=== PATIENT | female | born 1980 | race Caucasian/White ===

== ENCOUNTER 2016-09-18 13:14 | Emergency (ER) | payer SELFPAY ==
--- NOTE | ~2016-09-18 | ER ---
[facility]GE[facility] 36 Y [address] ROOM: [place] [id number] LOCATION: [facility] ADMIT DATE: 09/18/2016 ER/Outpatient Report DISCHARGE DATE: 09/18/2016 FAMILY PHYSICIAN: PHYSICIAN, NO ATTENDING PHYSICIAN: Georgie Jones Admission date and time documented on the medical record. I saw the patient at 1330 hours. CHIEF COMPLAINT: Vertigo and weakness. HISTORY OF PRESENT ILLNESS: This patient is a 36-year-old female who comes in with a 3-day history of vertigo and generalized weakness. No nausea, vomiting, or diarrhea. No urinary frequency, urgency, or dysuria. No chest pain or shortness of breath. No abdominal pain or back pain. No headache or eyes, ears, nose, throat, neck, or spine pain. No recent coughs, colds, flus, fever, chills, or sweats. No syncope. No joint or muscle swelling, redness, or pain. No skin eruptions or rash. No history of endocrine problems, neurologic changes, or psychiatric issues. HOME MEDICATIONS: See attached medication list. ALLERGIES: PENICILLIN, ASPIRIN, AND MORPHINE SULFATE. SOCIAL HISTORY: The patient smokes a pack of cigarettes per day. Nondrinker. No illicit drugs. SIGNIFICANT PAST MEDICAL HISTORY: Hypertension, tobacco abuse, and recurrent otitis. OPERATIONS: None. REVIEW OF SYSTEMS: All systems reviewed by me are negative with the exception of those discussed in the History of Present Illness. PHYSICAL EXAMINATION: VITAL SIGNS: Temperature 97 tympanic, pulse 84 and regular, respirations 16, blood pressure 187/102, and O2 saturation on room air is 95%. [facility]: 36 Y [address] ROOM: [place] [address] LOCATION: [facility] ADMIT DATE: 09/18/2016 ER/Outpatient Report DISCHARGE DATE: 09/18/2016 FAMILY PHYSICIAN: PHYSICIAN, NO ATTENDING PHYSICIAN: Georgie Jones HEAD: Normocephalic. EYES, EARS, NOSE, AND THROAT: Clear. Mucous membranes moist. Mild horizontal nystagmus. NECK: No nuchal rigidity. No thyromegaly or cervical adenopathy. No carotid bruits. No tenderness. SPINE: Negative. LUNGS: Clear. Good air flow. No rales, rhonchi, or wheezes. HEART: Regular. Pulses are palpable. ABDOMEN: Soft, nondistended, and nontender. Good bowel tones. No organomegaly or abnormal masses palpable. EXTREMITIES: Moves all 4 extremities. No peripheral edema, cyanosis, or deformity. Neurovascularly intact. SKIN: Clear. No skin eruptions or rash. DIAGNOSTIC DATA: EKG showed sinus rhythm. No acute ST elevation, ischemic change, or arrhythmia. Chest x-ray showed no acute infiltrate. We will review x-ray with the radiologist. LABORATORY DATA: Jerug-zn-[id number] cardiac enzymes were normal. CPK was 63. Magnesium 1.7. CMS was normal. CRP was 0.5. Thyroid was normal. ProBNP was less than 30. D- dimer was 0.37. Urine showed 0 to 2 whites, 0 to 2 reds, 10 to 20 epithelial cells, moderate bacteria, few white cell clumps, 0 to 2 hyaline casts, and negative nitrites. Lactate 1.0. White count was 11,700 with 60 segs, 20 lymphs, 6 monos, 5 eos, and 1 baso; hemoglobin was 15.5 with hematocrit 45; and platelet count was 317,000. PTT was 30, prothrombin time was 10 with an INR of 0.95. IMPRESSION: 1. Benign positional vertigo. 2. Tobacco abuse. 3. Hypertension. PLAN: The patient was discharged home. Observation. Activity as tolerated. Continue home medications and care. Fluids and diet as tolerated. Antivert 25 mg 4 times a day for a week. Valium 2 mg 3 times a day for a week. Follow up with personal physician in 7 to 10 days. Discussed ensued with the patient concerning my findings and recommendations. GEORGIE JONES MD PATIENT'S NAME: GRACE ALCAZAR [facility] AGE: 36 Y [address] ROOM: [place] [address] LOCATION: ED ADMIT DATE: 09/18/2016 ER/Outpatient Report DISCHARGE DATE: 09/18/2016 FAMILY PHYSICIAN: PHYSICIAN, NO ATTENDING PHYSICIAN: Georgie Jones/modl /[id number] d: 09/18/161821 t: 09/22/16 0618, OUTPATIENT REPORT
[2016-09-18 13:50] LABS: BILIRUBIN URINE NEGATIVE (NEGATIVE); BLOOD URINE NEGATIVE /UL (NEGATIVE); COLOR URINE YELLOW (YELLOW); GLUCOSE URINE NEGATIVE (NEGATIVE); KETONE URINE NEGATIVE (NEGATIVE); LEUKOCYTES URINE 25 /UL (NEGATIVE); NITRITE URINE NEGATIVE (NEGATIVE); PH URINE 6.5 (4.0-8.0); PROTEIN URINE NEGATIVE (NEGATIVE); SPEC GRAVITY URINE 1.015 (1.003-1.035); TURBIDITY URINE CLEAR (CLEAR); UROBILINOGEN URINE NORMAL (NORMAL)
[2016-09-18 13:52] LABS: BASOPHIL # 0.1 K/uL (0.0-0.2); BASOPHIL % 1.1 %; EOSINOPHIL # 0.6 K/uL (0.0-0.5); EOSINOPHIL % 4.9 %; HEMOGLOBIN 15.5 g/dL (11.0-15.0); IMMATURE GRANULOCYTE # 0.1 K/uL (0.0-0.3); IMMATURE GRANULOCYTE % 0.6 %; LYMPHOCYTE # 3.3 K/uL (0.8-4.0); MCH 33.4 pg (27.0-34.0); MCHC 34.4 gm/dL (32.0-36.5); MONOCYTE # 0.7 K/uL (0.0-1.0); MONOCYTE % 5.9 %; MPV 9.2 fl (9.4-12.4); NEUTROPHIL # (ANC) 6.9 K/uL (1.8-7.8); NEUTROPHIL % 59.5 %; NRBC % 0 /100WBC (0-0.00); PLATELET COUNT 317 K/uL (150-450); RBC 4.64 M/uL (3.50-5.50); RDW-CV 13.3 % (11.9-14.6); WBC 11.7 K/uL (4.0-11.0)
[2016-09-18 14:01] LABS: INR - (THERAPEUTIC) 0.95 (0.92-1.07); PTT 30 SECONDS (25-32)
[2016-09-18 14:02] LABS: RBC URINE 0-2 #/HPF (NEGATIVE); WBC URINE 0-2 #/HPF (NEGATIVE)
[2016-09-18 14:03] LABS: BACTERIA URINE MODERATE (NEGATIVE); HYALINE CAST URINE 0-2 #/LPF (NEGATIVE); WBC CLUMPS URINE FEW (NEGATIVE)
[2016-09-18 14:15] LABS: ALBUMIN 3.8 gm/dL (3.5-5.0); ALK PHOS 60 IU/L (33-138); ALT 64 IU/L (12-78); ANION GAP 12.7 (10.0-19.0); AST 30 IU/L (10-40); BLOOD UREA NITROGEN 9 mg/dL (6-24); CALCIUM 9.7 mg/dL (8.5-10.5); CHLORIDE 104 mMol/L (96-110); CO2 25 mMol/L (22-32); CPK 63 IU/L (21-215); CREATININE 0.8 mg/dL (0.5-1.1); ESTIMATED GFR (MDRD EQUATION) > 60; MAGNESIUM 1.7 mg/dL (1.8-2.6); POTASSIUM 3.7 mMol/L (3.7-5.1); SODIUM 138 mMol/L (135-145); TOTAL BILIRUBIN 0.4 mg/dL (0.0-1.5); TOTAL PROTEIN 7.8 g/dL (6.0-8.4)
== END 2016-09-18 14:40 | disposition disaster alternative care site (69) ==
LOC: GMED 13:14
PROVIDERS: Emergency Medicine
DX: H81.10 Benign paroxysmal vertigo, unspecified ear (principal); I10 Essential (primary) hypertension; F17.210 Nicotine dependence, cigarettes, uncomplicated; Z88.0 Allergy status to penicillin; Z88.5 Allergy status to narcotic agent; Z88.6 Allergy status to analgesic agent; Z79.899 Other long term (current) drug therapy

== ENCOUNTER → 2017-01-21 | Outpatient (CLI) | payer BC | END | disposition disaster alternative care site (69) | LOC: GRAD 07:57 | DX: R19.07 Generalized intra-abdominal and pelvic swelling, mass and lump (principal); K76.0 Fatty (change of) liver, not elsewhere classified; Z90.49 Acquired absence of other specified parts of digestive tract ==